=== PATIENT | female | born 1995 | race Two or more races ===

== ENCOUNTER 2019-10-20 16:46 | Emergency (ER) | payer MEDICAID ==
[~2019-10-20] VITALS: Ht 160 cm; Wt 87.5 kg
[2019-10-20 18:31] VITALS: BP 138/72
== END 2019-10-21 05:14 | disposition home or self-care (01) ==
LOC: ER 16:46
DX: S76.111A Strain of right quadriceps muscle, fascia and tendon, initial encounter (principal); X58.XXXA Exposure to other specified factors, initial encounter; Y93.89 Activity, other specified; Y92.89 Other specified places as the place of occurrence of the external cause; Y99.8 Other external cause status